=== PATIENT | female | born 1980 | race American Indian/Alaskan Native ===

== ENCOUNTER 2018-12-14 06:57 | Emergency (ER) | payer OTHER ==
[2018-12-14] MEDS ORDERED: ZOFRAN IV ONE (07:32)
[2018-12-14] MEDS ORDERED: NACL 0.9% 1000 ML 1,000 ML IV ONE ×2 (07:32→10:12)
[2018-12-14] MEDS ORDERED: PEPCID IV ONE (07:33)
--- NOTE | 2018-12-14 07:41 | Emergency Department Report ---
HPI - General Chief Complaint: Nausea/Vomiting/Diarrhea Time Seen by Provider: 12/14/18 07:22 - HPI HPI: Room 26 The patient is a 38-year-old female presenting with a chief complaint of nausea vomiting and diarrhea. Patient's sutures in usual state of health yesterday when she ate it she gets a rash and amharic fries from [employer] on the way home at 16:00. The patient states when she made it home she began to feel an upset stomach. At approximately 20:00 she developed nausea vomiting and diarrhea. The patient says she try saltine crackers and marilee kya did not help. Patient admits to subjective fever and chills. Patient admits to an epigastric discomfort. Patient denies dysuria or sick contacts. Patient denies recent antibiotic use. Location: Gastrointestinal system Duration: Onset yesterday Quality: Vomiting, diarrhea Severity: Moderate Modifying factors: [see above] Context: [see above] Mode of transportation: The patient drove herself to the emergency department and there are no visitors present ED Past Medical Hx - Past Medical History Previous Medical History?: Yes Additional medical history: sickle cell trait - Surgical History Past Surgical History?: No Hx Cholecystectomy: Yes - Family History Family history: no significant - Social History Smoking Status: Never Smoker Substance Use Type: Alcohol (occasional) - Medications Home Medications: Home Medications Medication Instructions Recorded Confirmed Last Taken Type Promethazine [Phenergan TAB] 25 mg PO Q6HR PRN #20 tab 12/14/18 Unknown Rx Promethazine [Phenergan] 25 mg [place] Q6HR PRN #5 supp.rect 12/14/18 Unknown Rx levoFLOXacin [Levaquin TAB] 500 mg PO QDAY #7 tablet 12/14/18 Unknown Rx ED Review of Systems ROS: Stated complaint: N/V/D Other details as noted in HPI Constitutional: chills Respiratory: no symptoms reported Endocrine: no symptoms reported Gastrointestinal: abdominal pain, nausea, vomiting, diarrhea Genitourinary: denies: dysuria Physical Exam - Physical Exam Physical Exam: GENERAL: The patient is well-developed well-nourished female lying on stretcher not appearing to be in acute distress. [] HEENT: Normocephalic. Atraumatic. Patient has moist mucous membranes. NECK: Trachea midline CHEST/LUNGS: Clear to auscultation. There is no respiratory distress noted. HEART/CARDIOVASCULAR: Regular. There is no tachycardia. There is no gallop rub or murmur. ABDOMEN: Abdomen is soft, nontender. There is no rebound or guarding. Patient has normal bowel sounds. There is no abdominal distention. SKIN: There is no rash. There is no edema. There is no diaphoresis. NEURO: The patient is awake, alert, and oriented. The patient is cooperative. The patient has normal speech MUSCULOSKELETAL: There is no evidence of acute injury. ED Course - Reevaluation(s) Reevaluation #1: 12/14/18 14:35 Patient persistently tachycardic despite 2 L IV fluids and resolution of fever. Patient advised to be admitted to the hospital for further hydration/management. Patient states she does not wish to be admitted to the hospital ED Medical Decision Making - Lab Data Result diagrams: 12/14/18 07:40 12/14/18 07:40 Laboratory Tests 12/14/18 12/14/18 12/14/18 07:40 07:40 07:40 WBC 11.5 H RBC 6.66 H Hgb 13.0 Hct 38.0 MCV 57 L MCH 20 L MCHC 34 RDW 16.7 H Plt Count 294 Lymph % (Auto) 9.0 L [place] % (Auto) 2.4 Eos % (Auto) 0.1 Baso % (Auto) 0.3 Lymph # 1.0 L [place] # 0.3 Eos # 0.0 Baso # 0.0 Seg Neutrophils % 88.2 H Seg Neutrophils # 10.2 H Sodium 142 Potassium 3.6 Chloride 103.0 Carbon Dioxide 22 Anion Gap 21 BUN 7 Creatinine 0.5 L Estimated GFR > 60 BUN/Creatinine Ratio 14 Glucose 117 H Calcium 9.1 Total Bilirubin 1.30 H AST 193 H ALT 386 H Alkaline Phosphatase 74 Total Creatine Kinase 98 CK-MB (CK-2) < 1.0 CK-MB (CK-2) Rel Index 1.0 Troponin T < 0.010 Total Protein 8.1 Albumin 4.1 Albumin/Globulin Ratio 1.0 Lipase 19 HCG, Qual Negative Urine Color Urine Turbidity Urine pH Ur Specific [place] Urine Protein Urine Glucose (UA) Urine Ketones Urine Blood Urine Nitrite Urine Bilirubin Urine Urobilinogen Ur Leukocyte Esterase Urine WBC (Auto) Urine RBC (Auto) U Epithel Cells (Auto) 12/14/18 08:48 WBC RBC Hgb Hct MCV MCH MCHC RDW Plt Count Lymph % (Auto) [place] % (Auto) Eos % (Auto) Baso % (Auto) Lymph # [place] # Eos # Baso # Seg Neutrophils % Seg Neutrophils # Sodium Potassium Chloride Carbon Dioxide Anion Gap BUN Creatinine Estimated GFR BUN/Creatinine Ratio Glucose Calcium Total Bilirubin AST ALT Alkaline Phosphatase Total Creatine Kinase CK-MB (CK-2) CK-MB (CK-2) Rel Index Troponin T Total Protein Albumin Albumin/Globulin Ratio Lipase HCG, Qual Urine Color Yellow Urine Turbidity Clear Urine pH 6.0 Ur Specific [place] 1.012 Urine Protein <15 mg/dl Urine Glucose (UA) Neg Urine Ketones Neg Urine Blood Neg Urine Nitrite Neg Urine Bilirubin Neg Urine Urobilinogen < 2.0 Ur Leukocyte Esterase Neg Urine WBC (Auto) 1.0 Urine RBC (Auto) 1.0 U Epithel Cells (Auto) 2.0 - Radiology Data Radiology results: report reviewed (CT abdomen and pelvis), image reviewed (CT abdomen and pelvis) [place] [address] Cat Scan Report Signed Patient: IVETH BORJAS MR#: [id number] : 1980 Acct:[id number] Age/Sex: 38 / F ADM Date: 12/14/18 Loc: ED Attending Dr: Ordering Physician: BRISEIDA FANG MD Date of Service: 12/14/18 Procedure(s): CT abdomen pelvis w con Accession Number(s): [id number] cc: BRISEIDA FANG MD PROCEDURE: CT ABDOMEN PELVIS W CON TECHNIQUE: CT of the abdomen and pelvis was performed. IV contrast was administered. Axial images and coronal and sagittal reformatted images were obtained. HISTORY: epigastric discomfort, nausea vomiting diarrhea COMPARISON: None FINDINGS: The visualized liver, spleen, pancreas, adrenal glands and kidneys demonstrate no significant abnormality. There is no abdominal aortic aneurysm. There is no evidence for intestinal obstruction. There are fluid containing mid to distal normal caliber small bowel and colon. Findings could reflect gastroenteritis/enterocolitis. No inflammatory changes are seen. The appendix is normal. There is a small fat-containing umbilical hernia. The patient is status post cholecystectomy. Bladder is unremarkable. IMPRESSION: Fluid-containing normal-caliber small bowel and colon. This could reflect gastroenteritis/enterocolitis. No obstruction seen. Small fat-containing umbilical hernia. This document is electronically signed by Elissa Kumari MD., December 14 2018 10:34:50 AM ET Transcribed By: LEEROY Dictated By: ELISSA KUMARI MD Electronically Authenticated By: ELISSA KUMARI MD Signed Date/Time: 12/14/18 1037 DD/ 3 TD/TT: 12/14/18953 - Differential Diagnosis gastroenteritis, partial small bowel obstruction, anginal equivalent Critical care attestation.: If time is entered above; I have spent that time in minutes in the direct care of this critically ill patient, excluding procedure time. ED Disposition Clinical Impression: Gastroenteritis, acute, Nausea vomiting and diarrhea Disposition: LEFT AGAINST MED ADVICE Is pt being admited?: No Does the pt Need Aspirin: No Condition: Undetermined Prescriptions: levoFLOXacin [Levaquin TAB] 500 mg PO QDAY #7 tablet Promethazine [Phenergan TAB] 25 mg PO Q6HR PRN #20 tab PRN Reason: Nausea Promethazine [Phenergan] 25 mg [place] Q6HR PRN #5 supp.rect PRN Reason: Vomiting Referrals: PRIMARY CARE, [Primary Care Provider] - KATIE LENNY DRUMMOND MD [Staff Physician] - KATIE Time of Disposition: 14:38 (patient leaving AMA)
[2018-12-14 07:54] LABS: Basophils % (Auto) 0.3 % (0.0-1.8); Eosinophils % (Auto) 0.1 % (0.0-4.3); Mean Corpuscular HGB Conc 34 % (30-34); Monocytes # (Auto) 0.3 K/mm3 (0.0-0.8); Monocytes % (Auto) 2.4 % (0.0-7.3); Red Blood Count 6.66 M/mm3 (3.65-5.03); Red Cell Distribution Width 16.7 % (13.2-15.2)
[2018-12-14 08:01] LABS: Mean Corpuscular Volume 57 fl (79-97); Platelet Count 294 K/mm3 (140-440)
[2018-12-14] MEDS ORDERED: LOMOTIL PO ONE (08:19)
[2018-12-14 08:21] LABS: Alanine Aminotransferase 386 units/L (7-56); Albumin 4.1 g/dL (3.9-5); BUN/Creatinine Ratio 14; Blood Urea Nitrogen 7 mg/dL (7-17); Calcium 9.1 mg/dL (8.4-10.2); Hemolysis Index 4
[2018-12-14 08:56] LABS: Creatine Kinase MB < 1.0 ng/mL (0.0-4.0)
[2018-12-14 09:14] LABS: Bilirubin,Urine NEG (Negative); Blood,Urine NEG (Negative); Color,Urine Yellow (Yellow); Protein,Urine <15 mg/dL mg/dL (Negative); Urobilinogen,Urine < 2.0 mg/dL (<2.0)
[2018-12-14] MEDS ORDERED: PHENERGAN PO ONE (10:11)
--- NOTE | 2018-12-14 10:37 | Cat Scan Report ---
PROCEDURE: CT ABDOMEN PELVIS W CON TECHNIQUE: CT of the abdomen and pelvis was performed. IV contrast was administered. Axial images and coronal and sagittal reformatted images were obtained. HISTORY: epigastric discomfort, nausea vomiting diarrhea COMPARISON: None FINDINGS: The visualized liver, spleen, pancreas, adrenal glands and kidneys demonstrate no significant abnorma lity. There is no abdominal aortic aneurysm. There is no evidence for intestinal obstruction. There are fluid containing mid to distal normal hollie flor small bowel and colon. Findings could reflect gastroenteritis/enterocolitis. No inflammatory francois ges are seen. The appendix is normal. There is a small fat-containing umbilical hernia. The patient is status post cholecystectomy. Bladder is unremarkable. IMPRESSION: Fluid-containing normal-caliber small bowel and colon. This could reflect gastroenteritis/enterocolit is. No obstruction seen. Small fat-containing umbilical hernia. This document is electronically signed by Elissa Kumari MD., December 14 2018 10:34:50 AM ET
[2018-12-14] MEDS ORDERED: TYLENOL ONE (12:24)
[2018-12-14] MEDS ORDERED: TYLENOL PO ONE (12:25)
[2018-12-14] MEDS ORDERED: LEVAQUIN PO ONE (12:50)
[2018-12-14 15:36] VITALS: BP 148/84
== END 2018-12-14 17:00 | disposition left against medical advice (07) ==
LOC: ED 06:57
DX: K52.9 Noninfective gastroenteritis and colitis, unspecified (principal); Z90.49 Acquired absence of other specified parts of digestive tract
CPT/HCPCS: 36415; 74177; 80053; 81001; 82550; 82553; 83690; 84484; 84703; 85025; 93005; 93010; 96361; 96374; 96375; 99284; J2405; J7030; Q9967; Q0169

== ENCOUNTER → 2019-01-26 | Outpatient (CLI) | payer OTHER | END | disposition home or self-care (01) | LOC: SLR 11:00 | PROVIDERS: ATTEND Otolaryngology | DX: G47.33 Obstructive sleep apnea (adult) (pediatric) (principal); R40.0 Somnolence; R06.83 Snoring; Z90.49 Acquired absence of other specified parts of digestive tract | CPT/HCPCS: G0399 ==

== ENCOUNTER 2020-07-07 10:57 | Emergency (ER) | payer SELFPAY ==
[2020-07-07 11:13] VITALS: BP 125/95
--- NOTE | 2020-07-07 11:33 | Emergency Department Report ---
ED General Adult HPI - General Chief complaint: Abdominal Pain Stated complaint: BLOOD IN URINE Time Seen by Provider: 07/07/20 11:25 Source: patient Mode of arrival: Ambulatory Limitations: No Limitations - History of Present Illness Initial comments: Is a pleasant 40-year-old female presents emerged department chief complaint of 1 day of hematuria. She reports this morning she woke up and had an episode of hematuria and then when she got to work today she had another episode. She has a history of IgA nephropathy 10 years ago and was treated with lisinopril at that time. She states she recently moved here and does not have a general partner or primary care doctor yet. She denies any other medical history other than sickle cell trait. Current medications include oral contraceptive pills. She denies any allergies to medication that she is aware. She denies any associated fever, chills, night sweats, headache, dizziness, blurry vision, nausea, vomiting, diarrhea, chest pain, shortness of breath or any other associated symptoms. - Related Data Previous Rx's Medication Instructions Recorded Last Taken Type Promethazine [Phenergan TAB] 25 mg PO Q6HR PRN #20 tab 12/14/18 Unknown Rx Promethazine [Phenergan] 25 mg [place] Q6HR PRN #5 supp.rect 12/14/18 Unknown Rx levoFLOXacin [Levaquin TAB] 500 mg PO QDAY #7 tablet 12/14/18 Unknown Rx cephALEXin [Keflex] 500 mg PO Q8HR #30 cap 07/07/20 Unknown Rx Allergies Allergy/AdvReac Type Severity Reaction Status Date / Time No Known Allergies Allergy Verified 07/07/20 11:13 ED Review of Systems ROS: Stated complaint: BLOOD IN URINE Other details as noted in HPI Comment: All other systems reviewed and negative Constitutional: denies: chills, fever Eyes: denies: eye pain, eye discharge, vision change ENT: denies: ear pain, throat pain Respiratory: denies: cough, shortness of breath, wheezing Cardiovascular: denies: chest pain, palpitations Endocrine: no symptoms reported Gastrointestinal: denies: abdominal pain, nausea, diarrhea Genitourinary: hematuria. denies: urgency, dysuria, discharge Musculoskeletal: denies: back pain, joint swelling, arthralgia Skin: denies: rash, lesions Neurological: denies: headache, weakness, paresthesias Psychiatric: denies: anxiety, depression Hematological/Lymphatic: denies: easy bleeding, easy bruising ED Past Medical Hx - Past Medical History Previous Medical History?: Yes Additional medical history: sickle cell trait - Surgical History Past Surgical History?: Yes Hx Cholecystectomy: Yes - Social History Smoking Status: Current Every Day Smoker Substance Use Type: None, Alcohol - Medications Home Medications: Home Medications Medication Instructions Recorded Confirmed Last Taken Type Promethazine [Phenergan TAB] 25 mg PO Q6HR PRN #20 tab 12/14/18 Unknown Rx Promethazine [Phenergan] 25 mg [place] Q6HR PRN #5 supp.rect 12/14/18 Unknown Rx levoFLOXacin [Levaquin TAB] 500 mg PO QDAY #7 tablet 12/14/18 Unknown Rx cephALEXin [Keflex] 500 mg PO Q8HR #30 cap 07/07/20 Unknown Rx ED Physical Exam - General Limitations: No Limitations General appearance: alert, in no apparent distress - Head Head exam: Present: atraumatic, normocephalic - Eye Eye exam: Present: normal appearance, PERRL, EOMI Pupils: Present: normal accommodation - ENT ENT exam: Present: normal exam, normal orophraynx, mucous membranes moist - Neck Neck exam: Present: normal inspection, full ROM. Absent: tenderness, meningismus - Respiratory Respiratory exam: Present: normal lung sounds bilaterally. Absent: respiratory distress, wheezes, rales, rhonchi, stridor - Cardiovascular Cardiovascular Exam: Present: regular rate, normal rhythm, normal heart sounds. Absent: systolic murmur, diastolic murmur, rubs, gallop - GI/Abdominal GI/Abdominal exam: Present: soft, normal bowel sounds. Absent: distended, tenderness, guarding, rebound, rigid - Extremities Exam Extremities exam: Present: normal inspection, full ROM, normal capillary refill. Absent: tenderness, calf tenderness - Back Exam Back exam: Present: normal inspection, full ROM. Absent: tenderness, CVA tenderness (R), CVA tenderness (L), muscle spasm, paraspinal tenderness, ve rtebral tenderness - Neurological Exam Neurological exam: Present: alert, oriented X3, normal gait. Absent: motor sensory deficit - Psychiatric Psychiatric exam: Present: normal affect, normal mood - Skin Skin exam: Present: warm, dry, intact, normal color. Absent: rash ED Course Vital Signs 07/07/20 11:11 Temperature 99.2 F Pulse Rate 68 Respiratory 16 Rate Blood Pressure 125/95 O2 Sat by Pulse 100 Oximetry ED Medical Decision Making - Lab Data Result diagrams: 07/07/20 11:40 07/07/20 11:40 Lab Results 07/07/20 07/07/20 07/07/20 Range/Units 11:40 11:40 12:20 WBC 7.0 (4.5-11.0) K/mm3 RBC 5.36 H (3.65-5.03) M/mm3 Hgb 11.1 (10.1-14.3) gm/dl Hct 31.7 (30.3-42.9) % MCV 59 L (79-97) fl MCH 21 L (28-32) pg MCHC 35 H (30-34) % RDW 15.8 H (13.2-15.2) % Plt Count 215 (140-440) K/mm3 Lymph % (Auto) 38.7 H (13.4-35.0) % [place] % (Auto) 5.3 (0.0-7.3) % Eos % (Auto) 1.5 (0.0-4.3) % Baso % (Auto) 0.7 (0.0-1.8) % Lymph # (Auto) 2.7 (1.2-5.4) K/mm3 [place] # (Auto) 0.4 (0.0-0.8) K/mm3 Eos # (Auto) 0.1 (0.0-0.4) K/mm3 Baso # (Auto) 0.0 (0.0-0.1) K/mm3 Seg Neutrophils % 53.8 (40.0-70.0) % Seg Neutrophils # 3.7 (1.8-7.7) K/mm3 Sodium 140 (137-145) mmol/L Potassium 4.0 (3.6-5.0) mmol/L Chloride 104.6 (98-107) mmol/L Carbon Dioxide 25 (22-30) mmol/L Anion Gap 14 mmol/L BUN 8 (7-17) mg/dL Creatinine 0.7 (0.6-1.2) mg/dL Estimated GFR > 60 ml/min BUN/Creatinine Ratio 11 % Glucose 73 (65-100) mg/dL Calcium 9.1 (8.4-10.2) mg/dL Urine Color Red (Yellow) Urine Turbidity Clear (Clear) Urine pH 7.0 (5.0-7.0) Ur Specific [place] 1.005 (1.003-1.030) Urine Protein 100 mg/dl (Negative) mg/dL Urine Glucose (UA) Neg (Negative) mg/dL Urine Ketones Neg (Negative) mg/dL Urine Blood Lg (Negative) Urine Nitrite Neg (Negative) Urine Bilirubin Neg (Negative) Urine Urobilinogen 2.0 (<2.0) mg/dL Ur Leukocyte Esterase Neg (Negative) Urine WBC (Auto) 95.0 H (0.0-6.0) /HPF Urine RBC (Auto) > 182.0 (0.0-6.0) /HPF Urine HCG, Qual Negative (Negative) - Medical Decision Making Patient nontoxic in no acute distress. Vitals are stable. Her lab work was unremarkable showing no signs of anemia or kidney issue. Her urine did show hematuria and pyuria. We will treat the patient with antibiotics and recommended due to her history of IgA nephropathy to follow-up with urology and nephrology. I discussed with my attending physician who agreed with this plan. Patient was instructed to return to the emergency department any change or worsening symptoms. She verbalized understand the diagnosis, treatment plan and follow-up instructions and all her questions were answered. - Differential Diagnosis iga nephropathy, nephrolithiasis, cystitis Critical care attestation.: If time is entered above; I have spent that time in minutes in the direct care of this critically ill patient, excluding procedure time. ED Disposition Clinical Impression: Hematuria Qualifiers: Hematuria type: unspecified type Qualified Code(s): R31.9 - Hematuria, unspecified Acute cystitis Qualifiers: Hematuria presence: with hematuria Qualified Code(s): N30.01 - Acute cystitis with hematuria Disposition: - TO HOME OR SELFCARE Is pt being admited?: No Condition: Stable Instructions: Acute Hematuria (ED) Prescriptions: cephALEXin [Keflex] 500 mg PO Q8HR #30 cap Referrals: ANTONI FONG MD [Staff Physician] - 3-5 Days SYDNEE HESTER MD [Staff Physician] - 3-5 Days Time of Disposition: 13:13
[2020-07-07 12:07] LABS: Basophils % (Auto) 0.7 % (0.0-1.8); Eosinophils # (Auto) 0.1 K/mm3 (0.0-0.4); Eosinophils % (Auto) 1.5 % (0.0-4.3); Hematocrit 31.7 % (30.3-42.9); Hemoglobin 11.1 gm/dl (10.1-14.3); Lymphocytes # (Auto) 2.7 K/mm3 (1.2-5.4); Lymphocytes % (Auto) 38.7 % (13.4-35.0); Mean Corpuscular HGB Conc 35 % (30-34); Monocytes # (Auto) 0.4 K/mm3 (0.0-0.8); Monocytes % (Auto) 5.3 % (0.0-7.3); Platelet Count 215 K/mm3 (140-440); Red Blood Count 5.36 M/mm3 (3.65-5.03); Red Cell Distribution Width 15.8 % (13.2-15.2)
[2020-07-07 12:13] LABS: Blood Urea Nitrogen 8 mg/dL (7-17); Calcium 9.1 mg/dL (8.4-10.2); Hemolysis Index 0
[2020-07-07 12:15] LABS: BUN/Creatinine Ratio 11
[2020-07-07 12:16] LABS: Mean Corpuscular Volume 59 fl (79-97)
[2020-07-07 12:42] LABS: Bilirubin,Urine NEG (Negative); Blood,Urine LG (Negative); Color,Urine Red (Yellow)
[2020-07-07 12:43] LABS: RBC,Urine > 182.0 /HPF (0.0-6.0)
[2020-07-07 12:44] LABS: HCG Qualitative,Urine Negative (Negative)
== END 2020-07-07 14:04 | disposition home or self-care (01) ==
LOC: ED 10:57
DX: N30.01 Acute cystitis with hematuria (principal); F17.200 Nicotine dependence, unspecified, uncomplicated; Z90.49 Acquired absence of other specified parts of digestive tract; Z98.890 Other specified postprocedural states; Z79.899 Other long term (current) drug therapy
CPT/HCPCS: 36415; 80048; 81001; 81025; 85025; 87086; 99283

== ENCOUNTER 2020-07-20 09:52 | Observation (INO) | payer OTHER ==
[2020-07-20] MEDS ORDERED: SODIUM CHLORIDE 0.9% 1000 ML 1,000 ML IV ONE (10:01)
[2020-07-20] MEDS ORDERED: MORPHINE 4 MG/1 ML INJ IV ONE (10:01)
[2020-07-20] MEDS ORDERED: ONDANSETRON 4 MG/2 ML INJ IV ONE ×2 (10:01→10:30)
--- NOTE | 2020-07-20 10:04 | Emergency Department Report ---
ED Abdominal Pain HPI - General Stated Complaint: ABD PAIN PUI?: No Time Seen by Provider: 07/20/20 10:01 Source: patient Mode of arrival: Stretcher Limitations: No Limitations - History of Present Illness Initial Comments: This is a 40-year-old female with history of anemia, sickle cell trait, GERD, obstructive sleep apnea with history of sudden onset lower crampy abdominal pain. She feels that this may have been caused by taking vitamins on empty s tomach. She felt faint. She felt nauseous. Then she developed severe crampy intermittent abdominal pain 7 out of 10. She has history of gastric sleeve surgery November 2019. Recently finished a course of antibiotics 2 days ago. She was being treated for hematuria. MD Complaint: abdominal pain -: Sudden, This morning Location: LLQ, RLQ Radiation: none Severity: severe Severity scale (0 -10): 7 Quality: cramping Consistency: intermittent Improves With: nothing Worsens With: nothing Associated Symptoms: nausea - Related Data Previous Rx's Medication Instructions Recorded Last Taken Type Promethazine [Phenergan TAB] 25 mg PO Q6HR PRN #20 tab 12/14/18 Unknown Rx Promethazine [Phenergan] [address] Q6HR PRN #5 supp.rect 12/14/18 Unknown Rx levoFLOXacin [Levaquin TAB] 500 mg PO QDAY #7 tablet 12/14/18 Unknown Rx cephALEXin [Keflex] 500 mg PO Q8HR #30 cap 07/07/20 Unknown Rx Allergies Allergy/AdvReac Type Severity Reaction Status Date / Time No Known Allergies Allergy Verified 07/07/20 11:13 ED Review of Systems ROS: Stated complaint: ABD PAIN Other details as noted in HPI Comment: All other systems reviewed and negative Constitutional: denies: fever, malaise Respiratory: denies: cough, shortness of breath Gastrointestinal: abdominal pain, nausea. denies: vomiting, diarrhea, constipation ED Past Medical Hx - Past Medical History Previous Medical History?: Yes Additional medical history: sickle cell trait - Surgical History Hx Cholecystectomy: Yes Additional Surgical History: gastric sleeve surgery - Social History Smoking Status: Current Every Day Smoker Substance Use Type: None, Alcohol - Medications Home Medications: Home Medications Medication Instructions Recorded Confirmed Last Taken Type Promethazine [Phenergan TAB] 25 mg PO Q6HR PRN #20 tab 12/14/18 Unknown Rx Promethazine [Phenergan] [address] Q6HR PRN #5 supp.rect 12/14/18 Unknown Rx levoFLOXacin [Levaquin TAB] 500 mg PO QDAY #7 tablet 12/14/18 Unknown Rx cephALEXin [Keflex] 500 mg PO Q8HR #30 cap 07/07/20 Unknown Rx ED Physical Exam - General General appearance: alert, in no apparent distress, other (appears in pain, rubbing abdomen) - Head Head exam: Present: atraumatic, normocephalic - Eye Eye exam: Present: normal appearance - ENT ENT exam: Present: mucous membranes moist - Neck Neck exam: Present: normal inspection, full ROM - Respiratory Respiratory exam: Present: normal lung sounds bilaterally. Absent: respiratory distress, wheezes, rales, rhonchi - Cardiovascular Cardiovascular Exam: Present: regular rate, normal rhythm, normal heart sounds. Absent: systolic murmur, diastolic murmur, rubs, gallop - GI/Abdominal GI/Abdominal exam: Present: soft, normal bowel sounds. Absent: distended, tenderness, guarding, rebound - Extremities Exam Extremities exam: Present: normal inspection - Neurological Exam Neurological exam: Present: alert, oriented X3 - Psychiatric Psychiatric exam: Present: normal affect, normal mood - Skin Skin exam: Present: warm, dry, intact, normal color. Absent: rash ED Course Vital Signs 07/20/20 10:05 Pulse Rate 63 Respiratory 14 Rate Blood Pressure 165/89 [Right] O2 Sat by Pulse 100 Oximetry - Reevaluation(s) Reevaluation #1: 07/20/20 11:30 Patient had sudden onset of chest tightness. She feels as if the air has been taken away from her. I order stat EKG, troponin. Also ordered an acid. ED Medical Decision Making - Lab Data Result diagrams: 07/20/20 10:18 07/20/20 10:18 - EKG Data -: EKG Interpreted by Me EKG shows normal: sinus rhythm, intervals Rate: normal - EKG Data 07/20/20 11:40 EKG obtained 1133 after the onset of sudden chest pain EKG interpreted by me Normal sinus rhythm rate 60 bpm normal axis normal intervals T wave inversion in the anterior leads no ST elevation - Radiology Data Radiology results: report reviewed CT abdomen pelvis w con INDICATION: abdominal pain vomiting. COMPARISON: None TECHNIQUE: Abdominal and pelvic CT exam performed. All CT scans at this location are performed using CT dose reduction for ALARA by means of automated exposure control. FINDINGS: CT ABDOMEN and PELVIS: Lung Bases: No significant abnormality. Liver: No significant abnormality. Biliary: No significant abnormality. Spleen: No significant abnormality. Pancreas: No significant abnormality. Adrenals: No significant abnormality. Kidneys: No significant abnormality. Lymphatics: No lymphadenopathy. Vasculature: No significant abnormality. Bowel/Peritoneum: There is a loop of small bowel within the right lower quadrant which is mildly thickened with dilation of the feeding arteriovenous, example image 40 of series 601. Postoperative from gastric sleeve resection. Normal appendix. Pelvis: No significant abnormality. Osseous Structures: No aggressive osseous lesion. Additional Findings: Small umbilical hernia containing a loop of small bowel with an air-fluid level. No proximal bowel dilation to indicate obstruction. IMPRESSION: 1. Short segment of small bowel wall thickening concerning for enteritis which could be infectious and/or inflammatory etiology. 2. Small bowel containing umbilical hernia. - Medical Decision Making 1. Abdominal pain: Differential diagnosis includes peptic ulcer disease, IBS, small bowel obstruction. CT abdomen pelvis reveals enteritis unknown etiology at this time possibly infectious. Patient has persistent nausea vomiting. In spite of multiple medications. 2. Chest pain: Severe chest pain tightness developed while in the emergency department. EKG revealed T wave inversion in anterior leads. Troponin is negative. Patient will be admitted for treatment and further evaluation. ACS is a concern heart score 4 Critical care attestation.: If time is entered above; I have spent that time in minutes in the direct care of this critically ill patient, excluding procedure time. ED Disposition Clinical Impression: Enteritis, Acute coronary syndrome Disposition: OP ADMIT IP TO THIS HOSP Is pt being admited?: Yes Does the pt Need Aspirin: Yes Condition: Stable
[2020-07-20] MEDS ORDERED: PANTOPRAZOLE 40 MG INJ IV ONE (10:13)
[2020-07-20] MEDS ORDERED: diphenhydrAMINE 50 MG/ML VIAL IV ONE (10:30)
[2020-07-20 10:40] LABS: Basophils # (Auto) 0.1 K/mm3 (0.0-0.1); Basophils % (Auto) 0.9 % (0.0-1.8); Eosinophils # (Auto) 0.1 K/mm3 (0.0-0.4); Eosinophils % (Auto) 1.4 % (0.0-4.3); Hematocrit 32.7 % (30.3-42.9); Lymphocytes # (Auto) 2.5 K/mm3 (1.2-5.4); Lymphocytes % (Auto) 27.9 % (13.4-35.0); Mean Corpuscular HGB Conc 34 % (30-34); Monocytes # (Auto) 0.5 K/mm3 (0.0-0.8); Platelet Count 217 K/mm3 (140-440); Red Blood Count 5.43 M/mm3 (3.65-5.03)
[2020-07-20 10:45] LABS: Mean Corpuscular Volume 60 fl (79-97)
[2020-07-20 10:46] LABS: Blood Urea Nitrogen 8 mg/dL (7-17); Calcium 9.1 mg/dL (8.4-10.2); Hemolysis Index 2
[2020-07-20 10:49] LABS: BUN/Creatinine Ratio 13
[2020-07-20] MEDS ORDERED: ALUM-MAG HYDROXIDE-SIMETHICONE 200-200-20MG/5ML ORAL LIQD 30 ML PO ONE (11:30)
[2020-07-20] MEDS ORDERED: LIDOCAINE VISCOUS 2% 15 ML ORAL LIQD PO ONE (11:30)
--- NOTE | 2020-07-20 13:05 | Cat Scan Report ---
CT abdomen pelvis w con INDICATION: abdominal pain vomiting. COMPARISON: None TECHNIQUE: Abdominal and pelvic CT exam performed. All CT scans at this location are performed using CT dose reduction for ALARA by means of automated exposure control. FINDINGS: CT ABDOMEN and PELVIS: Lung Bases: No significant abnormality. Liver: No significant abnormality. Biliary: No significant abnormality. Spleen: No significant abnormality. Pancreas: No significant abnormality. Adrenals: No significant abnormality. Kidneys: No significant abnormality. Lymphatics: No lymphadenopathy. Vasculature: No significant abnormality. Bowel/Peritoneum: There is a loop of small bowel within the right lower quadrant which is mildly thic kened with dilation of the feeding arteriovenous, example image 40 of series 601. Postoperative from gastric sleeve resection. Normal appendix. Pelvis: No significant abnormality. Osseous Structures: No aggressive osseous lesion. Additional Findings: Small umbilical hernia containing a loop of small bowel with an air-fluid level. No proximal bowel dilation to indicate obstruction. IMPRESSION: 1. Short segment of small bowel wall thickening concerning for enteritis which could be infectious an d/or inflammatory etiology. 2. Small bowel containing umbilical hernia. Signer Name: Haider Bearden MD Signed: 07/20/2020 1:00 PM Workstation Name: [id number]
[2020-07-20] MEDS ORDERED: ASPIRIN 81 MG TAB CHEW PO ONE (13:39)
--- NOTE | 2020-07-20 14:54 | Event Note ---
Date: 07/20/20 Late entry Code met called around 0945 and 07/20 in [facility] for abdominal pain and presyncope. Patient has a history of anemia and sickle cell trait. Upon my arrival patient was lying on the floor with her feet elevated. Vital signs stable: HR 68, BP 163/96, temperature 97.5 F on room air with no SPO2 available. Glucometer unavailable for blood glucose check. Patient stated that she took a multivitamin on an empty stomach and had cramping abdominal pain about 30 minutes prior and now she felt nauseous and faint. Neuro: Awake, alert , oriented x4, CV: S1/S2, RRR, Respiratory: CTA, RA, GI: ABD soft ND, BS x4 quadrants, lower ABD tender to palpation with right lower quadrant tenderness. Patient was transported to ED and handoff was given to Dr. Whitlock.
[2020-07-20] MEDS ORDERED: METOCLOPRAMIDE 10 MG/2 ML INJ IV PRN (17:51)
[2020-07-20] MEDS ORDERED: oxyCODONE /ACETAMINOPHEN 5-325MG TAB PO PRN (17:51)
[2020-07-20] MEDS ORDERED: ACETAMINOPHEN 325 MG TAB PO PRN (17:51)
--- NOTE | 2020-07-20 18:13 | History and Physical Report ---
History of Present Illness Date of examination: 07/20/20 Date of admission: 07/20/20 13:50 Chief complaint: Abdominal pain since a.m. Vomiting x1 Near syncope History of present illness: 40-year-old -Swedish female with history of gastric sleeve surgery in [place] [id number], GERD, sickle cell trait nearly passed out while working in the [email or web address] unit. Code met was called. Patient was lying on the floor but alert and oriented. Apparently vomited x1. Has crampy epigastric abdominal pain. No fever or chills. Continues to have pain in the epigastric region pain is about 7 on a scale of 1-10. Patient took some vitamin tablets and she attributes it to the vitamin tablets. No diarrhea. No fever or chills. No cough. No exposure to coronavirus. - Past Medical History Previous Medical History?: Yes sickle cell trait,Gerd, gastric sleeve surgery - Surgical History Hx Cholecystectomy: Yes Additional Surgical History: gastric sleeve surgery - Social History Smoking Status: Current Every Day Smoker Substance Use Type: None, Alcohol Family history Htn - Medications Home Medications: Home Medications Medication Instructions Recorded Confirmed Last Taken Type Promethazine [Phenergan TAB] 25 mg PO Q6HR PRN #20 tab 12/14/18 Unknown Rx Promethazine [Phenergan] 25 mg SC Q6HR PRN #5 supp.rect 12/14/18 Unknown Rx levoFLOXacin [Levaquin TAB] 500 mg PO QDAY #7 tablet 12/14/18 Unknown Rx cephALEXin [Keflex] 500 mg PO Q8HR #30 cap 07/07/20 Unknown Rx Review of Systems ROS: Constitutional no weight loss or weight gain no fever or chills HEENT no sore throat no post nasal drip no diplopia Neck no neck stiffness no lymph gland enlargement Chest and lungs no shortness of breath cough or wheezing CVS no chest pain no diaphoresis no palpitations GI :vomiting x1 and crampy abdominal pain and epigastric pain since morning Genitourinary system no dysuria no flank pain Musculoskeletal system no muscle pains no joint pains [employer] FE[employer] no syncope no seizures Skin no rash no itching Psychiatric no depression no homicidal or suicidal tendencies Hematologic no lymphedema or bruising Endocrine no polydipsia no polyuria no cold intolerance no heat intolerance Medications and Allergies Allergies Allergy/AdvReac Type Severity Reaction Status Date / Time No Known Allergies Allergy Verified 07/07/20 11:13 Exam - Constitutional Vitals: Temp Pulse Resp BP Pulse Ox 62 18 144/84 98 07/20/20 15:01 07/20/20 17:41 07/20/20 15:01 07/20/20 15:01 General appearance: Present: no acute distress, well-nourished - EENT Eyes: Present: PERRL ENT: hearing intact, clear oral mucosa - Neck Neck: Present: supple, normal ROM - Respiratory Respiratory effort: normal Respiratory: bilateral: CTA - Cardiovascular Heart rate: 88 Rhythm: regular Heart Sounds: Present: S1 & S2. Absent: rub, click - Extremities Extremities: no ischemia, pulses intact, pulses symmetrical, No edema Peripheral Pulses: within normal limits - Abdominal General gastrointestinal: Present: soft, tender, non-distended, normal bowel sounds Localized gastrointestinal: tender: epigastric periumbilical Female genitourinary: Present: normal - Rectal Rectal Exam: deferred - Integumentary Integumentary: Present: clear, warm, dry - Musculoskeletal Musculoskeletal: gait normal, strength equal bilaterally - Psychiatric Psychiatric: appropriate mood/affect, intact judgment & insight - Neurologic Neurologic: CNII-XII intact, moves all extremities - Allied Health Allied health notes reviewed: nursing, case management HEART Score - HEART Score History: Slightly suspicious Age: < 45 Risk factors: No known risk factors Troponin: Troponin T < 0.010 ng/mL (0.00-0.029) 07/20/20 10:18 - Critical Actions Critical Actions: 0-3 pts:0.9-1.7%risk of adverse cardiac event.Candidate for discharge Results - Labs CBC & Chem 7: 07/20/20 10:18 07/20/20 10:18 Labs: Laboratory Last Values WBC 9.0 K/mm3 (4.5-11.0) 07/20/20 10:18 RBC 5.43 M/mm3 (3.65-5.03) H 07/20/20 10:18 Hgb 11.0 gm/dl (10.1-14.3) 07/20/20 10:18 Hct 32.7 % (30.3-42.9) 07/20/20 10:18 MCV 60 fl (79-97) L 07/20/20 10:18 MCH 20 pg (28-32) L 07/20/20 10:18 MCHC 34 % (30-34) 07/20/20 10:18 RDW 16.0 % (13.2-15.2) H 07/20/20 10:18 Plt Count 217 K/mm3 (140-440) 07/20/20 10:18 Lymph % (Auto) 27.9 % (13.4-35.0) 07/20/20 10:18 [place] % (Auto) 5.0 % (0.0-7.3) 07/20/20 10:18 Eos % (Auto) 1.4 % (0.0-4.3) 07/20/20 10:18 Baso % (Auto) 0.9 % (0.0-1.8) 07/20/20 10:18 Lymph # (Auto) 2.5 K/mm3 (1.2-5.4) 07/20/20 10:18 [place] # (Auto) 0.5 K/mm3 (0.0-0.8) 07/20/20 10:18 Eos # (Auto) 0.1 K/mm3 (0.0-0.4) 07/20/20 10:18 Baso # (Auto) 0.1 K/mm3 (0.0-0.1) 07/20/20 10:18 Seg Neutrophils % 64.8 % (40.0-70.0) 07/20/20 10:18 Seg Neutrophils # 5.8 K/mm3 (1.8-7.7) 07/20/20 10:18 Sodium 140 mmol/L (137-145) 07/20/20 10:18 Potassium 3.3 mmol/L (3.6-5.0) L 07/20/20 10:18 Chloride 104.2 mmol/L (98-107) 07/20/20 10:18 Carbon Dioxide 28 mmol/L (22-30) 07/20/20 10:18 Anion Gap 11 mmol/L 07/20/20 10:18 BUN 8 mg/dL (7-17) 07/20/20 10:18 Creatinine 0.6 mg/dL (0.6-1.2) 07/20/20 10:18 Estimated GFR > 60 ml/min 07/20/20 10:18 BUN/Creatinine Ratio 13 % 10/07/20 10:18 Glucose 104 mg/dL (65-100) H 07/20/20 10:18 Calcium 9.1 mg/dL (8.4-10.2) 07/20/20 10:18 Troponin T < 0.010 ng/mL (0.00-0.029) 07/20/20 10:18 Lipase 19 units/L (13-60) 07/20/20 10:18 HCG, Qual Negative (Negative) 07/20/20 10:18 - Imaging and Cardiology Imaging and Cardiology: abdominal CAT scan Short segment of small bowel wall thickening concerning for enteritis which could be infectious and/inflammatory etiology. Small bowel containing umbilical hernia Echavarria/IV: Voiding Method Toilet Assessment and Plan Advance Directives: Yes (Full code) VTE prophylaxis?: Chemical Plan of care discussed with patient/family: Yes - Patient Problems (1) Enteritis Current Visit: Yes Status: Acute Plan to address problem: Enteritis is minimal. Will will observe for 24 hours GI consult (2) Acute gastritis Current Visit: Yes Status: Acute Qualifiers: Gastritis type: unspecified gastritis Plan to address problem: IV Protonix for now IV normal saline (3) Hypokalemia Current Visit: Yes Status: Acute Plan to address problem: IV potassium and recheck BMP in the morning (4) Hypertension Current Visit: Yes Status: Acute Qualifiers: Hypertension type: unspecified Qualified Code(s): I10 - Essential (primary) hypertension Plan to address problem: We will trend the blood pressure and initiate blood pressure medicines if necessary. (5) DVT prophylaxis Current Visit: Yes Status: Acute Plan to address problem: Heparin subcu and GI prophylaxis
[2020-07-20] MEDS ORDERED: POTASSIUM CHLORIDE 10 MEQ 10 MEQ/100 ML BAG IV SCH (19:00)
[2020-07-20] MEDS: ONDANSETRON 4 MG/2 ML INJ IV PRN (20:23)
[2020-07-20] MEDS: HYDROmorphone 1 MG/1 ML INJ IV PRN (21:08)
[2020-07-20] MEDS: PANTOPRAZOLE 40 MG INJ IV SCH (21:09)
[2020-07-20] MEDS: HEPARIN 5,000 UNIT/1 ML VIAL SUB-Q SCH (21:09)
[2020-07-20] MEDS ORDERED: FAMOTIDINE 20 MG/2 ML INJ IV SCH (22:00)
[2020-07-20] MEDS: POTASSIUM CHLORIDE ER 20 MEQ TAB PO SCH (23:56)
[2020-07-21] MEDS: POTASSIUM CHLORIDE ER 20 MEQ TAB PO SCH (02:57)
[2020-07-21] MEDS: D5W/0.9% NACL 1,000 ML IV SCH ×2 (02:57→12:11)
[2020-07-21 06:31] LABS: Basophils % (Auto) 0.2 % (0.0-1.8); Eosinophils # (Auto) 0.1 K/mm3 (0.0-0.4); Hematocrit 30.3 % (30.3-42.9); Hemoglobin 10.3 gm/dl (10.1-14.3); Lymphocytes % (Auto) 21.2 % (13.4-35.0); Mean Corpuscular HGB Conc 34 % (30-34); Monocytes # (Auto) 0.4 K/mm3 (0.0-0.8); Monocytes % (Auto) 4.3 % (0.0-7.3); Platelet Count 189 K/mm3 (140-440); Red Blood Count 5.09 M/mm3 (3.65-5.03); Red Cell Distribution Width 15.3 % (13.2-15.2)
[2020-07-21 06:32] LABS: Mean Corpuscular Volume 60 fl (79-97)
[2020-07-21 06:59] LABS: Alanine Aminotransferase 13 units/L (7-56); Albumin 3.2 g/dL (3.9-5); Blood Urea Nitrogen 4 mg/dL (7-17); Calcium 8.6 mg/dL (8.4-10.2); Hemolysis Index 0
[2020-07-21 07:10] LABS: BUN/Creatinine Ratio 7
[2020-07-21 08:18] VITALS: BP 142/90
[2020-07-21] MEDS: HYDROmorphone 1 MG/1 ML INJ IV PRN (09:10)
[2020-07-21] MEDS: ONDANSETRON 4 MG/2 ML INJ IV PRN (09:10)
[2020-07-21] MEDS: PANTOPRAZOLE 40 MG INJ IV SCH (09:10)
[2020-07-21] MEDS: HEPARIN 5,000 UNIT/1 ML VIAL SUB-Q SCH (09:11)
--- NOTE | 2020-07-21 15:55 | Discharge Summary ---
Providers - Providers Date of Admission: 07/20/20 13:50 Date of discharge: 07/22/20 Attending physician: CURLY SNOW MD [facility] Reason for admission: Gastroenteritis Condition: Stable Pertinent studies: CT abdomen and pelvis showed enteritis Hospital course: 40-year-old -[place] female with history of gastric sleeve surgery in November 2019, GERD, sickle cell trait nearly passed out while working in the [facility]. Code met was called. Patient was lying on the floor but alert and oriented. Apparently vomited x1. Has crampy epigastric abdominal pain. No fever or chills. Continues to have pain in the epigastric region pain is about 7 on a scale of 1-10. Patient took some vitamin tablets and she attributes it to the vitamin tablets. No diarrhea. No fever or chills. No cough. No exposure to coronavirus. Patient was admitted to the floor and CT abdomen pelvis was done and significant for enteritis. Patient was put on antibiotics and PPI. Symptoms are getting better. Labs were unremarkable. Patient discharged with p.o. antibiotics. Patient states she has omeprazole at home and advised to continue to take it. Patient's questions and concerns were addressed at the bedside. Patient was hemodynamically stable at the time of discharge. Disposition: DC-01 TO HOME OR SELFCARE Time spent for discharge: 32 minutes - Discharge Diagnoses (1) Acute gastritis Status: Acute Qualifiers: Gastritis type: unspecified gastritis (2) Enteritis Status: Acute Core Measure Documentation - Palliative Care Palliative Care/ Comfort Measures: Not Applicable - Core Measures Any of the following diagnoses?: none Exam - Physical Exam Narrative exam: Not in cardiopulmonary distress. The patient appeared well nourished and normally developed. Vital signs as documented. Head exam is unremarkable. No scleral icterus . Neck is without jugular venous distension, thyromegaly, or carotid bruits. Lungs are clear to auscultation. Cardiac exam reveals regular rate and Rhythm. Abdominal exam reveals normal bowel sounds, nontender, no organomegaly. Extremities are nonedematous and both femoral and pedal pulses are normal. SET DESIGNER: Alert and oriented 3. No focal weakness. - Constitutional Vitals: Temp Pulse Resp BP Pulse Ox 98.6 F 63 18 142/90 99 07/21/20 08:16 07/21/20 08:16 07/21/20 08:16 07/21/20 08:16 07/21/20 08:16 General appearance: Present: no acute distress - EENT Eyes: Present: PERRL ENT: clear oral mucosa - Neck Neck: Present: supple, normal ROM - Respiratory Respiratory effort: normal - Cardiovascular Rhythm: regular Heart Sounds: Present: S1 & S2 - Extremities Extremities: no ischemia Peripheral Pulses: within normal limits - Abdominal General gastrointestinal: Present: soft, non-tender, normal bowel sounds - Rectal Rectal Exam: deferred - Integumentary Integumentary: Present: clear, warm, dry - Musculoskeletal Musculoskeletal: strength equal bilaterally - Psychiatric Psychiatric: appropriate mood/affect - Neurologic Neurologic: CNII-XII intact Plan Activity: no restrictions Weight Bearing Status: Full Weight Bearing Diet: regular Follow up with: KORY VUONG MD [Primary Care Provider] - 7 Days Prescriptions: metroNIDAZOLE [Flagyl] 500 mg PO Q8HR #15 tablet levoFLOXacin [Levaquin TAB] 500 mg PO QDAY #5 tablet Ondansetron [Zofran ODT TAB] 4 mg PO Q8HR #12 tab.lara
== END 2020-07-21 19:00 | disposition home or self-care (01) ==
LOC: ED 09:52 → 4A 13:50
PROVIDERS: ADMIT Internal Medicine; ATTEND Internal Medicine
DX: K52.9 Noninfective gastroenteritis and colitis, unspecified (principal); K29.00 Acute gastritis without bleeding; I24.9 Acute ischemic heart disease, unspecified; I10 Essential (primary) hypertension; E87.6 Hypokalemia; D57.3 Sickle-cell trait; K21.9 Gastro-esophageal reflux disease without esophagitis; F17.200 Nicotine dependence, unspecified, uncomplicated; G47.33 Obstructive sleep apnea (adult) (pediatric); D64.9 Anemia, unspecified; Z98.890 Other specified postprocedural states; Z79.899 Other long term (current) drug therapy
CPT/HCPCS: 36415; 74177; 80048; 80053; 83036; 83690; 84484; 84703; 85025; 93005; 96361; 96365; 96372; 96375; 96376; 99285; C9113; G0378; J1170; J1200; J1644; J2270; J2405; J3480; J7030; J7042; Q9967